=== PATIENT | female | born 1955 | race American Indian/Alaskan Native ===

== ENCOUNTER 2018-07-19 07:37 | Emergency (ER) | payer MEDICAID ==
--- NOTE | 2018-07-19 10:15 | Emergency Department Report ---
- General Chief Complaint: Upper Respiratory Infection Stated Complaint: CHEST PAIN Time Seen by Provider: 07/19/18 09:52 Source: patient Mode of arrival: Ambulatory Limitations: No Limitations - History of Present Illness Initial Comments: 62-year-old female presents with URI symptoms 1 week. Patient denies fever. Reports productive cough, wheezing which is worse at night. Denies history of asthma. Reports chest pain with cough. Denies shortness of breath. PCP: Maria Esther ALVARADO Complaint: cough -: week(s) (1) Severity: mild Consistency: intermittent Improves With: nothing Worsens With: nothing Associated Symptoms: cough. denies: fever, chills, sore throat - Related Data Previous Rx's Medication Instructions Recorded Last Taken Type Acetaminophen/Codeine 1 tab PO Q6H PRN #12 tab 01/14/14 Unknown Rx [Acetaminophen-Codeine #3 TAB] Benzonatate [Tessalon Perles] 100 mg PO Q8HR PRN #20 capsule 01/14/14 Unknown Rx Fluticasone [Flonase] 1 spray NS QDAY #1 bottle 01/14/14 Unknown Rx Ibuprofen [Motrin 800 MG tab] 800 mg PO TID PRN #30 tablet 01/14/14 Unknown Rx Miconazole 2% [Monistat-Derm] 1 applicatio TP BID #1 tube 10/15/15 Unknown Rx diphenhydrAMINE [Benadryl CAP] 25 mg PO Q6HR PRN #20 capsule 10/15/15 Unknown Rx Albuterol Sulfate [Proventil Hfa] 2 puff IH Q4HR PRN #1 hfa.aer.ad 07/19/18 Unknown Rx Benzonatate [Tessalon Perles] 100 mg PO Q8HR PRN #20 capsule 07/19/18 Unknown Rx predniSONE [Deltasone] 50 mg PO QDAY #5 tab 07/19/18 Unknown Rx Allergies Allergy/AdvReac Type Severity Reaction Status Date / Time No Known Allergies Allergy Verified 07/19/18 07:45 ED Review of Systems ROS: Stated complaint: CHEST PAIN Other details as noted in HPI Comment: All other systems reviewed and negative Constitutional: denies: chills, fever Respiratory: cough, wheezing Cardiovascular: chest pain (with cough only) ED Past Medical Hx - Past Medical History Hx Hypertension: Yes - Surgical History Hx Appendectomy: Yes Additional Surgical History: bilat knee replacements - Social History Smoking Status: Never Smoker Substance Use Type: None - Medications Home Medications: Home Medications Medication Instructions Recorded Confirmed Last Taken Type Acetaminophen/Codeine 1 tab PO Q6H PRN #12 tab 01/14/14 Unknown Rx [Acetaminophen-Codeine #3 TAB] Benzonatate [Tessalon Perles] 100 mg PO Q8HR PRN #20 capsule 01/14/14 Unknown Rx Fluticasone [Flonase] 1 spray NS QDAY #1 bottle 01/14/14 Unknown Rx Ibuprofen [Motrin 800 MG tab] 800 mg PO TID PRN #30 tablet 01/14/14 Unknown Rx Miconazole 2% [Monistat-Derm] 1 applicatio TP BID #1 tube 10/15/15 Unknown Rx diphenhydrAMINE [Benadryl CAP] 25 mg PO Q6HR PRN #20 capsule 10/15/15 Unknown Rx Albuterol Sulfate [Proventil Hfa] 2 puff IH Q4HR PRN #1 hfa.aer.ad 07/19/18 Unknown Rx Benzonatate [Tessalon Perles] 100 mg PO Q8HR PRN #20 capsule 07/19/18 Unknown Rx predniSONE [Deltasone] 50 mg PO QDAY #5 tab 07/19/18 Unknown Rx ED Physical Exam - General Limitations: No Limitations General appearance: alert, in no apparent distress - Head Head exam: Present: atraumatic, normocephalic - Eye Eye exam: Present: normal appearance - ENT ENT exam: Present: mucous membranes moist - Neck Neck exam: Present: normal inspection - Respiratory Respiratory exam: Present: wheezes (faint) - Cardiovascular Cardiovascular Exam: Present: regular rate, normal rhythm - GI/Abdominal GI/Abdominal exam: Present: soft. Absent: distended, tenderness - Extremities Exam Extremities exam: Present: normal inspection, full ROM - Neurological Exam Neurological exam: Present: alert, oriented X3 - Psychiatric Psychiatric exam: Present: normal affect, normal mood - Skin Skin exam: Present: warm, dry, intact, normal color ED Course Vital Signs 07/19/18 07/19/18 07:45 12:09 Temperature 98 F 98.4 F Pulse Rate 65 62 Respiratory 16 17 Rate Blood Pressure 156/72 Blood Pressure 151/82 [Right] O2 Sat by Pulse 97 97 Oximetry ED Medical Decision Making - Lab Data Result diagrams: 07/19/18 11:07 07/19/18 11:07 - Medical Decision Making - interstitial opacities - questionable CHF per radiologist, but BNP normal - troponin negative - will treat as bronchitis - advise PCP follow-up for cardiomegaly - return precautions given - Differential Diagnosis pneumonia, URI, bronchitis, CHF Critical care attestation.: If time is entered above; I have spent that time in minutes in the direct care of this critically ill patient, excluding procedure time. ED Disposition Clinical Impression: Bronchitis Disposition: DC-01 TO HOME OR SELFCARE Is pt being admited?: No Condition: Stable Instructions: Acute Bronchitis (ED) Prescriptions: predniSONE [Deltasone] 50 mg PO QDAY #5 tab Albuterol Sulfate [Proventil Hfa] 2 puff IH Q4HR PRN #1 hfa.aer.ad PRN Reason: Wheezing Benzonatate [Tessalon Perles] 100 mg PO Q8HR PRN #20 capsule PRN Reason: Cough Referrals: [facility] MD JAYNE [Primary Care Provider] - 3-5 Days Time of Disposition: 12:26
--- NOTE | 2018-07-19 10:42 | XRay Report ---
XRAY CHEST TWO VIEWS: 07/19/18 10:14 CLINICAL: Cough. COMPARISON: 02/19/12 FINDINGS: Cardiomegaly and central vascular congestion. Mild bibasal reticular interstitial lung opacities. No pulmonary consolidation. No pleural effusion. No tubes or lines.Scoliosis and spondylosis of the thoracic spine. IMPRESSION: Mild CHF with possible mild bibasal dependent pulmonary edema.
[2018-07-19 11:39] LABS: Basophils % (Auto) 0.6 % (0.0-1.8); Eosinophils # (Auto) 0.1 K/mm3 (0.0-0.4); Eosinophils % (Auto) 2.6 % (0.0-4.3); Hematocrit 38.5 % (30.3-42.9); Hemoglobin 13.1 gm/dl (10.1-14.3); Lymphocytes # (Auto) 1.7 K/mm3 (1.2-5.4); Lymphocytes % (Auto) 34.9 % (13.4-35.0); Mean Corpuscular HGB Conc 34 % (30-34); Mean Corpuscular Volume 98 fl (79-97); Monocytes # (Auto) 0.4 K/mm3 (0.0-0.8); Monocytes % (Auto) 7.8 % (0.0-7.3); Platelet Count 134 K/mm3 (140-440); Red Blood Count 3.93 M/mm3 (3.65-5.03); Red Cell Distribution Width 13.6 % (13.2-15.2)
[2018-07-19 12:03] LABS: BUN/Creatinine Ratio 19; Blood Urea Nitrogen 13 mg/dL (7-17); Hemolysis Index 146
[2018-07-19 12:10] VITALS: BP 151/82
== END 2018-07-19 12:59 | disposition home or self-care (01) ==
LOC: ED 07:37
DX: J40 Bronchitis, not specified as acute or chronic (principal); I10 Essential (primary) hypertension; Z90.49 Acquired absence of other specified parts of digestive tract
CPT/HCPCS: 36415; 71046; 80048; 83880; 84484; 85025; 99283